=== PATIENT | female | born 1940 | race Caucasian/White ===

== ENCOUNTER 2019-02-07 19:30 | Inpatient (IN) | payer BC ==
[2019-02-07 20:59] VITALS: BMI 25.4
[2019-02-07] MEDS ORDERED: ONDANSETRON 4 MG/2 ML VIAL IV PRN (21:40)
[2019-02-07] MEDS ORDERED: VANCOMYCIN/NS 1 gm 1 GM/250 ML BAG IVPB SCH (22:00)
[2019-02-07] MEDS ORDERED: CEFTRIAXONE 1 GM/NS 50 ML 1 GM/50 ML BAG IV SCH (22:00)
[2019-02-07] MEDS: CEFTRIAXONE/SWI 1gm 1 GM/10 ML SYR IV SCH (22:25)
[2019-02-07] MEDS: NA CHLORIDE 0.9% 1,000 ML IV SCH (22:25)
--- NOTE | 2019-02-07 22:27 | RAD REPORT ---
EXAM DESCRIPTION: RAD - Chest Pa And Lat (2 Views) - 02/07/2019 10:04 pm CLINICAL HISTORY: preop Chest pain. COMPARISON: Chest Pa And Lat (2 Views) dated 03/20/2016; Chest Pa And Lat (2 Views) dated 09/19/2015; EST PA AND LAT 2 VIEW dated 05/08/2015; CHEST SINGLE VIEW dated 12/01/2014 FINDINGS: The lungs are clear. The heart is normal in size. Small chronic left pleural effusion or p leural thickening. No aggressive bone lesion.
[2019-02-07 22:42] LABS: Absolute Lymphocytes (CBC) 1.5 K/uL (0.7-4.9); Basophils % 0.7 % (0-1.3); Hematocrit 34.6 % (36.0-45.0); Lymphocytes % 20.3 % (15.3-44.8); MPV 8.8 fL (7.6-11.3); Protime INR 1.08; RBC Red Blood Cell Count 3.97 M/uL (3.86-4.86)
[2019-02-07] MEDS: VANCOMYCIN 1.25 GM in NA CHLORIDE 0.9% 250 ML IVPB SCH (23:00)
[2019-02-07 23:02] LABS: Albumin 3.7 g/dL (3.4-5.0); Bilirubin Total 0.4 mg/dL (0.2-1.0); Magnesium 2.3 mg/dL (1.8-2.4); Potassium 3.8 mmol/L (3.5-5.1); Protein, Total 7.7 g/dL (6.4-8.2)
[2019-02-08] MEDS ORDERED: VANCOMYCIN 1 GM/VIAL ONE (00:08)
[2019-02-08] MEDS ORDERED: NA CHLORIDE 0.9% 250 ML ONE (00:10)
[2019-02-08 00:26] LABS: Urine Appearance CLEAR; Urine Bilirubin NEGATIVE (NEG); Urine Blood 1+ (NEG); Urine Color YELLOW; Urine Glucose NEGATIVE (NEG); Urine Protein NEGATIVE (NEG); Urine Specific Gravity <=1.005 (1.005-1.030); Urine Urobilinogen 0.2 mg/dL (0.2-1.0)
[2019-02-08 00:34] LABS: Urine Microscopic Reflex ORDER UMIC
[2019-02-08 00:38] LABS: Urine Bacteria <20 /HPF (<20); Urine Culture Reflex Order NOT NEEDED; Urine RBC <5 /HPF (NONE SEEN)
[2019-02-08] MEDS ORDERED: INFLUENZA VACCINE (for 3y+) 0.5 ML DOSE IMVAC ONE (08:00)
[2019-02-08] MEDS: PREGABALIN 100 MG PO SCH ×3 (09:00→23:20)
[2019-02-08] MEDS: GEMFIBROZIL 600 MG PO SCH ×2 (09:00→21:00)
[2019-02-08] MEDS: MORPHINE 2 MG/ML SYR IV PRN ×2 (09:25→13:36)
[2019-02-08] MEDS: CEFTRIAXONE/SWI 1gm 1 GM/10 ML SYR IV SCH ×2 (11:09→22:17)
[2019-02-08] MEDS ORDERED: BUPIVACA 0.5%/EPI 0.0005%/PF 10 ML VIAL ONE (13:53)
[2019-02-08] MEDS ORDERED: Ringers Lactate 1,000 ML IV ONE (13:54)
[2019-02-08] MEDS ORDERED: PROPOFOL 200 MG/20 ML VIAL IV ONE (14:10)
[2019-02-08] MEDS ORDERED: MIDAZOLAM HCL 2 MG/2 ML INJ ONE (14:10)
[2019-02-08] MEDS ORDERED: FENTANYL CITR 100 MCG/2 ML ONE (14:10)
[2019-02-08] MEDS ORDERED: ONDANSETRON 4 MG/2 ML VIAL ONE (14:11)
[2019-02-08] MEDS ORDERED: LIDOCAINE 2% MPF 5 ML VIAL ONE (14:15)
[2019-02-08] MEDS ORDERED: EPHEDRINE SULF 50 MG/ML VIAL ONE (14:37)
--- NOTE | 2019-02-08 14:50 | CON ---
Date of Consultation: 02/08/2019 Brief History Of Present Illness: Patient is a 78-year-old female with history of metastat ic breast cancer who presents with approximately 4 to 5-day history of right posterior thigh pain, te nderness, swelling, and drainage consistent with a possible abscess. She has not had similar episode s in the remote past. No traumatic injury to her knowledge and she has no systemic complaints or con stitutional complaints regarding this issue. Past Medical History: Significant for stage IV breast cancer, hypertension, and neuropathy. Past Surgical History: She has had a mastectomy for breast cancer. Home Medications: Arimidex, gemfibrozil, metoprolol, pregabalin, rosuvastatin, venlafaxine. Allergies: CODEINE. Social History: She denies smoking, alcohol, or recreational drug use. Review of Systems: 10-point review of systems other than HPI, denies. Physical Examination: Vital Signs: At time of my examination, blood pressure 109/60, pulse of 76, respiratory rate 18, tem perature 99.0. General: At the time of my examination, she is awake, alert, oriented. Psychiatric: Appropriate, conversive. HEENT: Normocephalic. Sclerae are icteric. Mucous membranes are moist. Oropharynx is clear. Neck: Supple. No JVD. Chest: Normal expansion and excursion. Mastectomy is evident. Abdomen: Soft, nontender, nondistended. Extremities: Focused examination of the extremities, left posterior thigh abscess is evident with dr puga, redness, cellulitis, and fluctuance in the area. The remainder of examination is essentially normal. Laboratory Data: Reveals a white blood count of 7.5, hemoglobin 11.4, hematocrit of 34.6, platelet c ount is 238. Her PT is 12.7, INR 1.08. Sodium 139, potassium 3.8, chloride 104, carbon dioxide 31, BUN 16, creatinine 0.7, glucose is 88. Magnesium is 2.3. Total bilirubin 0.4, AST 13, ALT 19, alkal ine phosphatase is 54. Her UA is essentially negative. She had a chest x-ray performed, which was o fficially read as lungs are clear. Heart is normal. Small chronic left pleural effusion or pleural thickening. No aggressive bony lesion. Assessment And Plan: This is a 78-year-old female who presents with signs and symptoms of an abscess of the posterior thigh. 1.IV fluid hydration. 2.Antibiotic coverage. 3.Continue medical management. 4.I explained risks, benefits, and alternatives of incision and drainage of the posterior thigh absc ess, including but not limited to bleeding, infection, damage to surrounding tissues, need for furthe r operation and procedures, the patient agrees to proceed as indicated. RANJANA/ARNAUD Voice ID: [id number] Report ID: [id number]
--- NOTE | 2019-02-08 14:57 | P.OP ---
Preoperative diagnosis: LEFT posterior thigh abscess Postoperative diagnosis: LEFT posterior thigh abscess Primary procedure: Incision and Drainage of LEFT posterior thigh abscess Anesthesia: GETA + Local Estimated blood loss: <5cc Specimen: cultures Findings: multiloculated abscess to fat [id number] Complications: None Transferred to: Recovery Room Condition: Good
--- NOTE | 2019-02-08 15:11 | HP ---
Date of Admission: 02/07/2019 Chief Complaint: Abscess, left thigh. History Of Present Illness: Ms. Milner is a very pleasant 78-year-old female patient, who came into my office today with her and reported that for last few months, she noted this small cyst ty pe of area, which slowly grew over period of time. The way she described it was about between 1 to 2 cm in size. Overlying skin was always normal color, normal temperature and was nontender up until l ast week on when she decided to squeeze this area to see if she can get something out of it and within a day after that, she started to have significant amount of redness, pain, and swelling of the soft tissue in the surrounding region and there was no open area, no drainage. The pain is cont inuous, worse with even very gentle touch. She has trouble sitting because of the location of this a roxanne. After she was evaluated at the office, decision was made to admit her to the hospital with absc ess of this left posterior thigh and she will require incision and drainage and IV antibiotics. Allergies: NO KNOWN ALLERGIES. Medications: List reviewed. Review of Systems: Dermatology: As mentioned above. All other systems reviewed and negative. Past Medical History: Neuropathy secondary to chemotherapy, allergic rhinitis, impaired fasting gluc ose, hyperlipidemia, palpitation, diverticulosis, breast cancer, osteoarthritis at multiple sites, os teoporosis, and anemia. Past Surgical History: Cataract surgery, left-sided mastectomy, hysterectomy, breast augmentation. Family History: Father, mother, and brother, they all had [place]. Son with hypertension. Social History: Prior history of smoking, not at present time. Use of alcohol negative. Physical Examination: Vital Signs: When she was admitted, temperature 98.4, pulse 69, respiratory rate 18, blood pressure 156/79, oxygen saturation 100%. Height 5 feet 6 inches, weight 157 pounds. General: Awake, alert, oriented, not in distress. HEENT: Head atraumatic, normocephalic. Conjunctivae nonerythematous. Sclerae white. Mouth, no thr ush or edema noted. Ears/Nose, no mass, lesion, discharge noted. Neck: Supple. No JVD, lymph nodes, bruit, thyromegaly noted. Lungs: Bilateral good equal air entry. Clear to auscultation. No rhonchi. No rales. Heart: Normal heart sounds, no murmur or gallop. Abdomen: Soft, bowel sounds normal. No guarding, rigidity, tenderness, mass, hepatosplenomegaly, dis tention, or bruit noted. Extremities: Left upper posterior thigh has approximately 8 cm x 5 cm large area of induration. Skin: This area is red, extremely tender to touch. In the center, has some fluctuation. No open wo und. Lymphatics: No lymph node enlargement in neck, supraclavicular, infraclavicular region. Neuro: No focal neurological deficit. Chest: Unremarkable. External Genitalia: Deferred. Rectal: Deferred. Laboratory Data: White count 7.5, hemoglobin 11.4, platelets 238. INR 1.08. Sodium 139, potassium 3.8, chloride 104, bicarb 31, BUN 16, creatinine 0.77, glucose 88. Liver function tests unremarkable . Urinalysis negative. Chest x-ray, no acute cardiopulmonary changes noted. Impression: 1.Abscess, left thigh. 2.Hyperlipidemia. 3.Impaired fasting glucose. 4.Left breast cancer. 5.Diverticulosis. 6.Osteoarthritis. 7.Osteoporosis. Plan: Admit patient to hospital for further evaluation and management of this problem. The patient is appropriate for inpatient and is expected to spend 2 midnights in hospital. We will go ahead and continue home medications per order. IV antibiotics will be started per order and the patient will n eed incision and drainage done tomorrow. We will keep her n.p.o. after midnight and we will consult general surgeon and I will discuss details with general surgeon regarding this. Plan of treatment ex plained to patient. I will see her tomorrow for followup. SCD was ordered for DVT prophylaxis. KENISHA/MODL Voice ID: [id number]
[2019-02-08 15:52] VITALS: O2SAT 97
[2019-02-08] MEDS: NA CHLORIDE 0.9% 1,000 ML IV SCH (16:31)
[2019-02-08] MEDS: Rosuvastatin Calcium 10 MG TABLET PO SCH (16:56)
[2019-02-08] MEDS: ACETAMINOPHEN 500 MG TAB PO PRN ×2 (16:56→22:37)
[2019-02-08] MEDS: ANASTROZOLE 1 MG PO SCH (16:57)
[2019-02-08] MEDS: SUCCINATE PO SCH (16:57)
[2019-02-08] MEDS: METOPROLOL PO SCH (16:57)
[2019-02-08] MEDS ORDERED: VENLAFAXINE HCL 75 MG PO SCH (21:00)
[2019-02-08] MEDS: VANCOMYCIN 1.25 GM in NA CHLORIDE 0.9% 250 ML IVPB SCH (22:17)
--- NOTE | 2019-02-09 00:32 | OP ---
Date of Procedure: 02/08/2019 Surgeon: Lakhwinder Pennington MD, Preoperative Diagnosis: Left posterior thigh abscess. Postopoperative Diagnosis: Left posterior thigh abscess. Procedure Performed: Incision and drainage of left posterior thigh abscess. Anesthesia: General endotracheal plus local with 0.5% Marcaine with epinephrine. Estimated Blood Loss: Less than 5 mL. Specimen: Cultures for both aerobic and anaerobic speciation. Findings: Multiloculated abscess extending to the subcu fat 5 cm x 4 cm x 4 cm. Complications: None. Disposition: Transferred to recovery room in good condition. Procedure In Detail: After informed consent was obtained, patient was brought to the operating room, prepped and draped in the usual sterile fashion. After adequate anesthesia was achieved, the area o xiao the left posterior thigh was opened up using a 15-blade down through the subcutaneous tissues. D issection continued down to a subcutaneous fat; however, an abscess was encountered. This was cultur ed at this time. The area was completely finger-fractured until complete evacuation of abscess was p erformed and all loculations were taken down. The area was copiously irrigated multiple times until all loculations were removed. A curette was used then to clean out all necrotic and debridement tiss ue after good bleeding tissue was left behind. Electrocautery used to achieve hemostasis easily. Th e area was irrigated once again and packed with half-inch iodoform packing. A sterile dressing was a pplied at the top. Patient tolerated the procedure well without evidence of complication, transferred to PACU in good condition. All counts w ere correct at the end of the case. RANJANA/ARNAUD Voice ID: [id number] Report ID: [id number]
[2019-02-09] MEDS: ACETAMINOPHEN 500 MG TAB PO PRN ×2 (05:39→12:22)
[2019-02-09] MEDS: NA CHLORIDE 0.9% 1,000 ML IV SCH (05:41)
[2019-02-09 08:57] VITALS: BP 118/70; TEMP 98.3
[2019-02-09] MEDS: SUCCINATE PO SCH (09:46)
[2019-02-09] MEDS: METOPROLOL PO SCH (09:46)
[2019-02-09] MEDS: GEMFIBROZIL 600 MG PO SCH (09:46)
[2019-02-09] MEDS: Rosuvastatin Calcium 10 MG TABLET PO SCH (09:47)
[2019-02-09] MEDS: ANASTROZOLE 1 MG PO SCH (09:47)
[2019-02-09] MEDS: PREGABALIN 100 MG PO SCH ×2 (09:57→13:18)
[2019-02-09] MEDS: CEFTRIAXONE/SWI 1gm 1 GM/10 ML SYR IV SCH (11:10)
--- NOTE | 2019-02-09 12:51 | P.PN ---
Subjective Date of Service: 02/09/19 Subjective: Improving (Patient feels much better) Physical Examination - Vital Signs Temperature: 98.3 F Blood Pressure: 118/70 Pulse: 65 Respirations: 18 Pulse Ox (%): 93 - Physical Exam General: Alert, In no apparent distress, Cooperative Integumentary: Other (wound packed well) Assessment And Plan - Plan S/P incision and drainage of posterior thigh abscess - daily dressing changes wtih packing - follow up in 1-2 weeks - antibiotics and medical management per Dr. Moreno
[2019-02-09] MEDS: MORPHINE 2 MG/ML SYR IV PRN (14:52)
--- NOTE | 2019-02-09 16:46 | PN ---
Date of Progress Note: 02/08/2019 Subjective: Patient was seen for followup in the morning. No new complaints or problems reported. She still has significant amount of pain in her left posterior thigh. Objective: Vital Signs: Reviewed. HEENT: Normal Lung: Clear to auscultation Heart: Sounds normal. Abdomen: Soft. Bowel sounds normal. No guarding, rigidity, tenderness, or distention. Extremities: No leg edema. Left posterior thigh abscess remains unchanged from yesterday. Impression: 1. Abscess, left thigh. 2. Hyperlipidemia. 3. Breast cancer. Plan: We will continue current medication, antibiotic. The patient is n.p.o. for incision and drainage procedure to be done today by Dr. Pennington and I have discussed details with Dr. Pennington. KENISHA/MODJayant Voice ID: [id number] Report ID: [id number] MTDD
--- NOTE | 2019-02-10 00:35 | DS ---
Date of Discharge: 02/09/2019 Disposition: Discharged to go home. Physical Examination: HEENT: Unremarkable. Lungs: Clear to auscultation. Heart: Sounds normal. Abdomen: Soft. Bowel sounds normal. No guarding, rigidity, tenderness, or distention. Extremities: Left posterior thigh has dressing present. Dressing was removed and noted that the patient had small wound approximately 2.5 cm size, it was packed with the wound, surrounding skin has some pink warm skin induration. Overall it is better than what it was before she had surgery yesterday. Hospital Course: Ms. Milner is a pleasant 78-year-old female patient who came into office with left posterior thigh abscess. Please see dictated H and P for more information. After she was evaluated, decision was made to admit her to the hospital. General surgeon, Dr. Pennington was consulted and yesterday the patient had incision and drainage, debridement procedure done for this abscess. Postoperatively, intraoperatively, she remained stable. The patient was started on IV antibiotic when she first came in and wound culture was collected , result is pending. Overall, her condition otherwise has remained stable and today I did talk to Dr. Pennington and from his point of view the patient can go home. Medically, patient is stable for discharge. Social service consult was requested to make arrangements for home health care services for wound care dressing changes. I did talk to patient about necessary precautions to avoid any transmission of infection. I did inform patient that her culture report is pending, it may take another day or 2 days before we get the final report back and on the basis of the final report, we may or may not need to change any antibiotics and in the worst case we may need IV antibiotic and she may have to come back to the hospital. She understands and she would like to go home if possible. Dr. Pennington and I, we both agreed that she is medically stable for discharge, so we will discharge her to go home and I will follow up on culture on an outpatient basis. If we need to change antibiotics, we will consider to do so. Final Diagnoses: 1. Abscess, left thigh. 2. Hyperlipidemia. 3. Impaired fasting glucose. 4. Left breast cancer. 5. Diverticulosis. 6. Osteoarthritis, multiple sites. 7. Osteoporosis. Laboratory Data: Labs done during this hospitalization, sodium 139, potassium 3.8, chloride 104, bicarb 31, BUN 16, creatinine 0.7, glucose 88. LFT is unremarkable. White count 7.5, hemoglobin 11.4, and platelet count of 238. Discharge Medications And Instructions: 1. Continue prior home medications. 2. Take Bactrim DS 1 tablet twice a day for 10 days. 3. Levaquin 500 mg daily for 10 days. 4. Dressing changes to be done by home health care nurses as per instruction from Dr. Pennington. 5. Follow up with Dr. Pennington next week and follow up at my office in 2-3 weeks. 6. The patient was instructed to use Tylenol 500 mg and Motrin 800 mg 3-4 times a day as needed for pain and for more intense pain she may use tramadol 50 mg every 6 hours as needed. Prescription was written for .. KENISHA/SHIRLEYL Voice ID: [id number] Report ID: [id number] MTDD
== END 2019-02-09 15:45 | disposition home health service (06) | DRG 581 ==
LOC: ER 19:30 → ERHOLD 19:34 → 4TH 20:07
PROVIDERS: ADMIT Internal Medicine; ATTEND Internal Medicine
PROC: 0J9P0ZZ Drainage of Left Lower Leg Subcutaneous Tissue and Fascia, Open Approach (ICD-10-PCS; principal; 2019-02-08 13:00)
DX: L02.416 Cutaneous abscess of left lower limb (principal); R73.01 Impaired fasting glucose; C50.919 Malignant neoplasm of unspecified site of unspecified female breast; G62.9 Polyneuropathy, unspecified; E78.5 Hyperlipidemia, unspecified; M81.0 Age-related osteoporosis without current pathological fracture; D64.9 Anemia, unspecified; M19.90 Unspecified osteoarthritis, unspecified site
CPT/HCPCS: 36415; 71046; 80053; 81003; 81015; 83735; 85025; 85610; 87070; 87075; 87205; J0696; J2250; J2270; J2405; J2704; J3010; J7030; J7120

== ENCOUNTER 2020-08-15 17:30 | Emergency (ER) | payer BC ==
--- OUTSIDE RECORDS SUMMARY | 2020-08-15 17:32 | XMS REPORT | Continuity of Care Document ---
:[address] [facility] t Address [address] [place] [address] Care Team Providers Name Role Phone Neli URIARTE Primary Care Physician Unavailable Mazin Bustamante DO Attending Clinician Lab, Fam Pob I Attending Clinician Unavailable Doctor Unassigned, Name Attending Clinician Unavailable Neli URIARTE Attending Clinician Unavailable William LAMBERT Attending Clinician Unavailable SHONDA Attending Clinician Unavailable Tanesha Perez Attending Clinician Payers Payer Name Policy Type Policy Number Effective Date Expiration Date S oursandra [employer] [place] PPO POS [id number] 2015 00:00:00 Problems This patient has no known problems. Allergies, Adverse Reactions, Alerts This patient has no known allergies or adverse reactions. Medications This patient has no known medications. Vital Signs Vital Name Observation Time Observation Value Comments Source WEIGHT 2019-09-19 00:00:00 77.3 kg Procedures This patient has no known procedures. Encounters Start End Encounter Admission Attending Care Care Encounter Source Date/Time Date/Time Type Type Clinicians Facility Department ID 2020-04-08 2020-04-08 Patient PEGGY Bustamante [id number] 00:00:00 00:00:00 Outreach [facility] [id number] Mazin [facility] [id number] BECKY [id number] 2020-02-14 2020-02-14 Laboratory Lab, [facility] [id number] 11:15:12 11:35:12 Only Fam Pob I [place] [id number] [place] [id number] kenji [id number] nal [address] 2020-02-14 2020-02-14 Letter Doctor GREG [id number] 00:00:00 00:00:00 (Out) UnassignedISH [id number] [place] [facility] [id number] 2019-12-12 2019-12-12 Outpatient SHERRY URIARTE, MDA MDA [id number] MD 00:00:00 00:00:00 KYARA singh 2019-12-12 2019-12-12 Outpatient SHERRY URIARTE, MDA MDA [id number] MD 00:00:00 00:00:00 KYARA singh 2019-12-12 2019-12-12 Outpatient SHERRY LAMBERT, MDA MDA [id number] MD 00:00:00 00:00:00 VINCENT singh 2019-11-14 2019-11-14 Outpatient SHERRY URIARTE, MDA MDA [id number] MD 00:00:00 00:00:00 KYARA singh 2019-10-17 2019-10-17 Outpatient SHERRY URIARTE, MDA MDA [id number] MD 00:00:00 00:00:00 KYARA singh 2019-10-17 2019-10-17 Outpatient PRISCA MICHEL MDA MDA [id number] MD 00:00:00 00:00:00 Anjel singh 2019-09-19 2019-09-19 Outpatient SHERRY URIARTE, MDA MDA [id number] 11:34:39 23:59:00 KYARA singh 2019-09-19 2019-09-19 Outpatient SHERRY LAMBERT, MDA MDA [id number] MD 14:32:35 14:32:35 VINCENT singh 2019-09-19 2019-09-19 Outpatient SHERRY LAMBERT, MDA MDA [id number] MD 14:32:12 14:32:12 VINCENT singh 2019-09-19 2019-09-19 Outpatient SHERRY URIARTE, MDA MDA [id number] MD 13:02:38 13:58:41 KYARA singh 2019-08-17 2019-08-17 [facility] [id number] 14:24:00 23:59:00 Encounter [facility] [id number] Surgical [id number] Specialti [id number] es 809 Linda 2019-08-17 2019-08-17 Office Michael ARSOY [id number] 14:08:45 14:23:45 Visit [facility] [id number] Surgical [id number] Specialti [phone] es 198 Linda Results This patient has no known results.
--- NOTE | 2020-08-15 19:15 | RAD REPORT ---
EXAM DESCRIPTION: Shoulder Right 2 View - 08/15/2020 6:35 pm CLINICAL HISTORY: PAIN, fall, shoulder pain COMPARISON: <Comparisons>none TECHNIQUE: Internal and external rotation views of the right shoulder were obtained. FINDINGS: There is no fracture or dislocation. AC joint is normal in appearance. No acute or suspic ious findings. IMPRESSION: Negative two-view right shoulder examination.
--- NOTE | 2020-08-15 19:16 | RAD REPORT ---
EXAM DESCRIPTION: Ribs Right - 08/15/2020 6:36 pm CLINICAL HISTORY: PAIN, fall, right-sided rib pain COMPARISON: Chest exam January 2019 FINDINGS: No displaced rib fracture is evident. No non-displaced rib fracture suspected. No aggressive rib lesion. No underlying pneumothorax, effusion, infiltrate or pulmonary contusion. IMPRESSION: Negative right rib series.
--- NOTE | 2020-08-15 19:17 | RAD REPORT ---
EXAM DESCRIPTION: RAD - Hip Right 2 View - 08/15/2020 6:36 pm CLINICAL HISTORY: PAIN COMPARISON: No comparisons FINDINGS: AP and frog-leg views of the right hip were obtained. There is no fracture or dislocation. No AVN or focal head abnormality. No significant degenerative ch conrad identified. Small crescent shaped bone density adjacent to the greater tuberosity is not an acut e traumatic injury. No acute or destructive bony process seen. IMPRESSION: Negative right hip examination for acute or significant findings.
--- NOTE | 2020-08-15 20:06 | EDPHYS ---
Physician Documentation [facility] Name: Aida Milner Age: 80 yrs Sex: Female : 1940 Arrival Date: 08/15/2020 Time: 17:33 Bed 13 Private MD: ED Physician Ray Garcia HPI: 08/15 20:02 This 80 yrs old Female presents to ER via Ambulatory with complaints of Fall rn Injury, Shoulder Pain. 20:02 Details of fall: The patient fell from an upright position, while standing. Onset: The rn symptoms/episode began/occurred 1 week(s) ago. Associated injuries: The patient sustained right shoulder, right ribs, right hip. Severity of symptoms: At their worst the symptoms were moderate, in the emergency department the symptoms have improved. The patient has not experienced similar symptoms in the past. The patient has not recently seen a physician. Fall from standing, still hurting, slightly better. No head or neck injury.. Historical: - Allergies: 18:08 Codeine; ph - Immunization history:: Adult Immunizations up to date. - Family history:: not pertinent. - Social history:: Smoking status: Patient denies any tobacco usage or history of. - Hospitalizations: : No recent hospitalization is reported. ROS: 20:02 Constitutional: Negative for fever, chills, and weight loss, Eyes: Negative for injury, rn pain, redness, and discharge, Neck: Negative for injury, pain, and swelling, Cardiovascular: + right rib pain Respiratory: Negative for shortness of breath, cough, wheezing, and pleuritic chest pain, Abdomen/GI: Negative for abdominal pain, nausea, vomiting, diarrhea, and constipation, Back: Negative for injury and pain, MS/Extremity: + right shoulder pain and right hip pain Skin: Negative for injury, rash, and discoloration, Neuro: Negative for headache, weakness, numbness, tingling, and seizure. Exam: 20:02 Constitutional: This is a well developed, well nourished patient who is awake, alert, rn and in no acute distress. Head/Face: Normocephalic, atraumatic. Neck: No vertebral point tenderness Chest/axilla: + mild tenderness right posteriolateral ribs, no crepitus Cardiovascular: Regular rate and rhythm. No pulse deficits. Respiratory: No increased work of breathing, no retractions or nasal flaring. Abdomen/GI: Soft, non-tender, with normal bowel sounds. No distension or tympany. No guarding or rebound. No evidence of tenderness throughout. Back: No spinal tenderness. No costovertebral tenderness. Full range of motion. Skin: Warm, dry MS/ Extremity: Pulses equal, no cyanosis. Neurovascular intact. Full, normal range of motion. Mild tenderness right lateral hip. Neuro: Awake and alert, GCS 15, oriented to person, place, time, and situation. Cranial nerves II-XII grossly intact. Motor strength 5/5 in all extremities. Sensory grossly intact. Cerebellar exam normal. Normal gait. Vital Signs: 18:06 BP 140 / 79; Pulse 68; Resp 18; Temp 97.1; Pulse Ox 98% on R/A; Weight 82.55 kg; Height ph 5 ft. 6 in. (167.64 cm); 18:06 Body Mass Index 29.38 (82.55 kg, 167.64 cm) ph MDM: 19:53 Patient medically screened. rn 20:02 Differential diagnosis: contusion, fracture, sprain, strain. Data reviewed: vital rn signs, nurses notes, radiologic studies, plain films, and as a result, I will discharge patient. Counseling: I had a detailed discussion with the patient and/or guardian regarding: the historical points, exam findings, and any diagnostic results supporting the discharge/admit diagnosis, radiology results, the need for outpatient follow up, to return to the emergency department if symptoms worsen or persist or if there are any questions or concerns that arise at home. Special discussion: I discussed with the patient/guardian in detail that at this point there is no indication for admission to the hospital. It is understood, however, that if the symptoms persist or worsen the patient needs to return immediately for re-evaluation. 08/15 18:10 Order name: XRAY Shoulder RIGHT 2 view; Complete Time: 19:53 ph 08/15 18:10 Order name: XRAY Ribs RIGHT; Complete Time: 19:53 ph 08/15 18:10 Order name: XRAY Hip RIGHT 2 view; Complete Time: 19:53 ph Administered Medications: No medications were administered Disposition: 08/15/20 20:05 Discharged to Home. Impression: Contusion of right shoulder, Rib contusion, Contusion of right hip. - Condition is Stable. - Discharge Instructions: Rib Contusion, Shoulder Pain, Hip Pain, Shoulder Sprain. - Medication Reconciliation Form, Thank You Letter, Antibiotic Education, Prescription Opioid Use form. - Follow up: Private Physician; When: As needed; Reason: Recheck today's complaints, Re-evaluation by your physician. - Problem is new. - Symptoms have improved. Signatures: Dispatcher [employer] EDMS Ray Garcia MD MD rn Hall, Patricia RN RN Po Leone RN RN [id number] Gilberto Johnson RN RN [id number] Corrections: (The following items were deleted from the chart) 20:48 20:05 08/15/2020 20:05 Discharged to Home. Impression: Contusion of right shoulder; Rib rr5 contusion; Contusion of right hip. Condition is Stable. Forms are Medication Reconciliation Form, Thank You Letter, Antibiotic Education, Prescription Opioid Use. Follow up: Private Physician; When: As needed; Reason: Recheck today's complaints, Re-evaluation by your physician. Problem is new. Symptoms have improved. rn
--- NOTE | 2020-08-15 20:06 | ER ---
Nurse's Notes [facility] Name: Aida Milner Age: 80 yrs Sex: Female : 1940 Arrival Date: 08/15/2020 Time: 17:33 Bed 13 Private MD: Diagnosis: Contusion of right shoulder;Rib contusion;Contusion of right hip Presentation: 08/15 18:06 Chief complaint: Patient states: Fell last Thursday, reports pain to L shoulder, L ribs, ph and L hip, denies head injury or LOC, ambulatory into triage. Coronavirus screen: Client denies travel out of the [place] in the last 14 days. At this time, the client does not indicate any symptoms associated with coronavirus-19. Ebola Screen: No symptoms or risks identified at this time. Initial Sepsis Screen: Does the patient meet any 2 criteria? No. Patient's initial sepsis screen is negative. Does the patient have a suspected source of infection? No. Patient's initial sepsis screen is negative. Risk Assessment: Do you want to hurt yourself or someone else? Patient reports no desire to harm self or others. Onset of symptoms was August 15, 2020. 18:06 Method Of Arrival: Ambulatory ph 18:06 Acuity: MELVIN 4 ph Triage Assessment: 20:56 General: Appears in no apparent distress. comfortable, Behavior is calm, cooperative, jm8 appropriate for age. Historical: - Allergies: 18:08 Codeine; ph - Immunization history:: Adult Immunizations up to date. - Family history:: not pertinent. - Social history:: Smoking status: Patient denies any tobacco usage or history of. - Hospitalizations: : No recent hospitalization is reported. Screenin:55 Abuse screen: Denies threats or abuse. Denies injuries from another. Nutritional jm8 screening: No deficits noted. Tuberculosis screening: No symptoms or risk factors identified. Fall Risk None identified. Assessment: 20:54 General: Appears in no apparent distress. comfortable, Behavior is calm, cooperative, jm8 appropriate for age. Pain: Complains of pain in right arm, right hip, right shoulder Pain currently is 4 out of 10 on a pain scale. Quality of pain is described as aching. Neuro: No deficits noted. Level of Consciousness is awake, alert, obeys commands, Oriented to person, place, time. Cardiovascular: No deficits noted. Respiratory: No deficits noted. Airway is patent Trachea midline Respiratory effort is even, unlabored, Respiratory pattern is regular, symmetrical. GI: No deficits noted. No signs and/or symptoms were reported involving the gastrointestinal system. : No deficits noted. No signs and/or symptoms were reported regarding the genitourinary system. EENT: No deficits noted. No signs and/or symptoms were reported regarding the EENT system. Derm: No deficits noted. No signs and/or symptoms reported regarding the dermatologic system. Musculoskeletal: Reports pain in right arm, right shoulder, right hip. Vital Signs: 18:06 BP 140 / 79; Pulse 68; Resp 18; Temp 97.1; Pulse Ox 98% on R/A; Weight 82.55 kg; Height ph 5 ft. 6 in. (167.64 cm); 18:06 Body Mass Index 29.38 (82.55 kg, 167.64 cm) ph ED Course: 17:33 Patient arrived in ED. as 18:08 Triage completed. ph 18:08 Arm band placed on Patient placed in waiting room, Patient notified of wait time. ph Antipyretics given from triage as ordered by an ER provider. Antipyretics given from triage as ordered by an ER provider. X-ray ordered. 18:35 XRAY Shoulder RIGHT 2 view In Process Unspecified. EDMS 18:35 XRAY Ribs RIGHT In Process Unspecified. EDMS 18:35 XRAY Hip RIGHT 2 view In Process Unspecified. EDMS 19:53 Ray Garcia MD is Attending Physician. rn 20:56 Patient has correct armband on for positive identification. Bed in low position. Call jm8 light in reach. Side rails up X2. Adult w/ patient. 20:56 No provider procedures requiring assistance completed. Patient did not have IV access jm8 during this emergency room visit. Administered Medications: No medications were administered Outcome: 20:05 Discharge ordered by . rn 20:48 Patient left the ED. rr5 20:56 Discharged to home ambulatory, with family. jm8 20:56 Condition: good 20:56 Discharge instructions given to patient, family, Instructed on discharge instructions, follow up and referral plans. medication usage, Demonstrated understanding of instructions, follow-up care, medications. Signatures: Dispatcher [employer] Danna Rinaldi as Ray Garcia MD MD rn Hall, Patricia, RN RN ph Po Leone, RN RN rr5 Gilberto Johnson RN RN jm8
[2020-08-15 20:56] VITALS: BP 140/79; TEMP 97.1; O2SAT 98
== END 2020-08-15 20:48 | disposition home or self-care (01) ==
LOC: ER 17:30
DX: S40.011A Contusion of right shoulder, initial encounter (principal); S70.01XA Contusion of right hip, initial encounter; S20.211A Contusion of right front wall of thorax, initial encounter; W18.30XA Fall on same level, unspecified, initial encounter; Z88.5 Allergy status to narcotic agent
CPT/HCPCS: 99283

== ENCOUNTER 2021-03-18 09:50 | Emergency (ER) | payer BC ==
--- OUTSIDE RECORDS SUMMARY | 2021-03-18 09:52 | XMS REPORT | Continuity of Care Document ---
:1940 Author Organization [facility] t Address [address] [place] [address] Care Team Providers Name Role Phone Lito RIZVI Primary Care Physician Unavailable FARHAT Attending Clinician Unavailable CLARK Attending Clinician Unavailable Neli URIARTE Attending Clinician Unavailable RAFI Attending Clinician Unavailable LAWANDA Attending Clinician Unavailable SHONDA Attending Clinician Unavailable RAFI Attending Clinician Unavailable BRADLEY Attending Clinician Unavailable SHAKIR Attending Clinician Unavailable FACUNDO Attending Clinician Unavailable Mazin Bustamante DO Attending Clinician Lab, Fam Pob I Attending Clinician Unavailable Doctor Unassigned, Name Attending Clinician Unavailable William LAMBERT Attending Clinician Unavailable Tanesha RAJAN Attending Clinician Unavailable Tanesha Perez Attending Clinician SHAKIR Admitting Clinician Unavailable Payers Payer Name Policy Type Policy Number Effective Date Expiration Date S oursandra [place]PO POS [id number] 2015 00:00:00 PPO/EPO - BCBS [id number] BCBS PPO POS EPO [id number] 2011 00:00:00 CHOICE BCBS [facility] [id number] 2016 00:00:00 Problems This patient has no known problems. Allergies, Adverse Reactions, Alerts Allergy Allergy Status Severity Reaction(s) Onset Inactive Treating Comm ents Source Name Type Date Date Clinician CODEINE DRUG Active N/V [facility] SULFATE INGREDI 09-15 ity of 00:00: [address] NO KNOWN Allergy Active [facility] Medications This patient has no known medications. Vital Signs Vital Name Observation Time Observation Value Comments Source WEIGHT 2019-09-19 00:00:00 77.3 kg Procedures This patient has no known procedures. Encounters Start End Encounter Admission Attending Care Care Encounter Source Date/Time Date/Time Type Type Clinicians Facility Department ID 2021-03-04 2021-03-04 Outpatient EL ANASTASIIA MDA [id number] 10:23:49 10:23:49 Anjel singh 2021-02-20 2021-02-20 Outpatient SHERRY DOUGHERTY MDA MDA [id number] 11:30:00 23:59:00 ALFREDO singh 2021-02-20 2021-02-20 Outpatient SHERRY RODAS MDA MDA [id number] 13:16:26 13:16:26 ALLYSON singh 2021-02-11 2021-02-11 Outpatient SHERRY URIARTE MDA MDA [id number] 18:04:40 23:59:00 KYARA singh 2021-02-11 2021-02-11 Outpatient SHERRY URIARTE MDA MDA [id number] 11:56:58 18:03:00 KYARA singh 2021-02-11 2021-02-11 Outpatient SHERRY URIARTE MDA MDA [id number] MD 15:37:53 15:37:53 KYARA singh 2021-02-11 2021-02-11 Outpatient SHERRY URIARTE MDA MDA [id number] 13:54:52 15:33:40 KYARA singh 2021-02-11 2021-02-11 Outpatient SHERRY URIARTE MDA MDA [id number] 13:25:27 13:25:27 KYARA singh 2021-02-08 2021-02-[address] [facility] [id number] [facility] 13:38:01 15:43:37 Clara 2021-02-05 2021-02-05 Outpatient SHERRY WEBBERANASTASIIA PECK MDA [id number] 14:25:50 15:47:57 LOLITA singh 2021-02-05 2021-02-05 Outpatient EL MDA MDA [id number] 12:51:27 12:51:27 Anjel singh 2021-02-01 2021-02-[address] [facility] [id number] [facility] 11:15:05 15:43:06 Clara 2021-01-23 2021-01-23 Outpatient PRISCA MICHEL MDA MDA [id number] 08:55:17 09:42:42 Anjel singh 2021-01-22 2021-01-22 Outpatient ELIS MALAVE [facility] [id number] 17:48:31 23:59:00 2021-01-22 2021-01-22 Outpatient ELIS MALAVE [facility] SLE [id number] [facility] 17:48:24 23:59:00 2021-01-22 2021-01-22 Outpatient ELIS MALAVE [facility] SLE [id number] SLE[facility] 17:48:18 17:47:00 2021-01-10 2021-01-10 Outpatient EL MDA MDA [id number] 12:30:00 23:59:00 Anjel singh 2021-01-10 2021-01-10 Outpatient EL JESSEER, MDA MDA [id number] MD 13:15:06 15:00:23 KYARA singh 2020-12-17 2020-12-17 Outpatient EL MDA MDA [id number] 14:07:40 14:07:40 Anjel singh 2020-12-17 2020-12-17 Outpatient EL WEBBER, MDA MDA [id number] MD 13:05:15 13:58:12 LOLITA singh 2020-12-13 2020-12-13 Outpatient EL BOOSER, MDA MDA [id number] 12:29:13 23:59:00 KYARA singh 2020-12-13 2020-12-13 Outpatient EL BOOSER, MDA MDA [id number] MD 13:43:43 14:56:39 KYARA singh 2020-12-13 2020-12-13 Outpatient EL BOOSER, MDA MDA [id number] 12:08:00 12:08:00 KYARA singh 2020-12-13 2020-12-13 Outpatient EL JESSEER, MDA MDA [id number] 10:59:01 12:00:28 KYARA singh 2020-12-03 2020-12-03 Outpatient EL WEBBER, MDA MDA [id number] MD 11:58:42 11:58:42 LOLITA singh 2020-11-15 2020-11-15 Outpatient EL BOOSER, MDA MDA [id number] 07:00:00 23:59:00 KYARA singh 2020-11-15 2020-11-15 Outpatient EL BOOSER, MDA MDA [id number] 08:00:28 09:47:59 KYARA singh 2020-11-01 2020-11-01 Outpatient EL WEBBER, MDA MDA [id number] 07:05:33 23:59:00 LOLITA singh 2020-11-01 2020-11-01 Outpatient EL WEBBER, MDA MDA [id number] 08:38:31 10:10:01 LOLITA singh 2020-11-01 2020-11-01 Outpatient EL WEBBER, MDA MDA [id number] MD 07:00:00 07:04:00 LOLITA singh 2020-10-31 2020-10-31 Outpatient EL BRADLEY, MDA MDA [id number] 12:51:48 12:51:48 OMERO singh 2020-10-26 2020-10-27 Outpatient ER KIKE SCHILLING MDA Emergency 1 [id number] 14:01:00 20:13:00 Anjel singh 2020-10-18 2020-10-18 Emergency UR FACUNDO, MDA Emergency [id number] 13:02:00 18:56:00 YOLIE singh 2020-10-18 2020-10-18 Outpatient EL BOOSER, MDA MDA [id number] 10:58:40 12:27:51 KYARA singh 2020-10-05 2020-10-05 Outpatient EL BOOSER, MDA MDA [id number] 11:53:25 11:58:01 KYARA singh 2020-09-20 2020-09-20 Outpatient EL BOOSER, MDA MDA [id number] 13:37:56 14:08:00 KYARA singh 2020-09-20 2020-09-20 Outpatient EL BOOSER, MDA MDA [id number] 13:17:55 13:33:55 KYARA singh 2020-04-08 2020-04-08 Patient Robby, [facility] [id number] 00:00:00 00:00:00 Outreach Jeremias PRIMARY [id number] [place] C[facility] [id number] PAVILLION [id number] 2020-02-14 2020-02-14 Laboratory Lab, [facility] [id number] 11:15:12 11:35:12 Only Fam Pob I Health [id number] [place] [id number] Professio [id number] nal 0[address] 2020-02-14 2020-02-14 Outpatient [facility] [id number] Univers 11:20:00 11:20:00 y [facility] 2020-02-14 2020-02-14 Outpatient R [facility] [id number] Univers 11:20:00 11:20:00 [facility] 2020-02-14 2020-02-14 Letter Doctor GREG [id number] 00:00:00 00:00:00 (Out) Unassigned, [facility] [id number] [place] [facility] [id number] 2019-12-12 2019-12-12 Outpatient SHERRY URIARTE MDA MDA [id number] 00:00:00 00:00:00 KYARA singh 2019-12-12 2019-12-12 Outpatient SHERRY URIARTE MDA MDA [id number] 00:00:00 00:00:00 KYARA singh 2019-12-12 2019-12-12 Outpatient SHERRY LAMBERT MDA MDA [id number] MD 00:00:00 00:00:00 VINCENT singh 2019-11-14 2019-11-14 Outpatient SHERRY URIARTE MDA MDA [id number] 00:00:00 00:00:00 KYARA singh 2019-10-17 2019-10-17 Outpatient SHERRY URIARTE MDA MDA [id number] MD 12:05:19 12:05:19 KYARA singh 2019-10-17 2019-10-17 Outpatient PRISCA MICHEL MDA MDA [id number] 00:00:00 00:00:00 Anjel singh 2019-09-19 2019-09-19 Outpatient SHERRY URIARTE MDA MDA [id number] 11:34:39 23:59:00 KYARA singh 2019-09-19 2019-09-19 Outpatient SHERRY LAMBERT MDA MDA [id number] 14:32:35 14:32:35 VINCENT singh 2019-09-19 2019-09-19 Outpatient SHERRY LAMBERT MDA MDA [id number] 14:32:12 14:32:12 VINCENT singh 2019-09-19 2019-09-19 Outpatient SHERRY URIARTE MDA MDA [id number] 13:02:38 13:58:41 KYARA singh 2019-08-17 2019-08-17 [facility] [id number] Univers 14:24:11 23:59:00 NATHALIE [facility] 2019-08-17 2019-08-17 [facility] [id number] 14:24:00 23:59:00 Encounter [facility] [id number] Surgical [id number] Specialti [id number] es 809 [place] 2019-08-17 2019-08-17 [facility] [id number] Univers 15:00:00 15:00:[id number] [place] [address] 2019-08-17 2019-08-[address]840.114 [id number] 14:08:45 14:23:45 Visit [facility] [id number] Surgical [id number] Specialti [id number] es 198 [place] Results Test Description Test Time Test Comments Results Result [facility] e Comments RAD, KNEE, 3 2021-01-14 Is this procedure VIEWS, LEFT 0 to be performed 01:32:[address] [facility]?->[facility] CENTERName: LISA BearingReason for JANNETTE POLLOCK Exam:->Bilateral : 1940 chronic knee pain Sex: F FINAL REPORT EXAM/TECHNIQUE: Left knee radiography three views. INDICATION: Chronic knee pain. COMPARISON: None. FINDINGS: Moderate to severe medial compartment joint space narrowing. Minimal patellofemoral osteoarthritis. No joint effusion. Mild genu valgum. 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 Minimal patellofemoral osteoarthritis. Signed: Joe Jang [facility] Verified Date/Time: 01/23/2021 01:32:34 , KNEE, 3 2021-01-14 Is this procedure VIEWS, RIGHT 0 to be performed 00:42:[address] [facility] [facility]?->[facility]ENTERName: LISA BearingReason for JANNETTE POLLOCK Exam:->Bilateral : 1940 chronic knee pain Sex: F FINAL REPORT EXAM/TECHNIQUE: Right knee radiography three views. INDICATION: Chronic knee pain. COMPARISON: None. FINDINGS: Minimal patellofemoral osteophytosis. Moderate to severe medial compartment joint space narrowing with genu valgum deformity. No knee joint effusion. Impression: 1. Moderate to severe medial compartment osteoarthritis.2. Minimal patellofemoral osteoarthritis. Signed: Joe Jang [facility] Verified Date/Time: 01/23/2021 00:42:09 , SHOULDER, 2021-01-14 Reason for COMPLETE (MIN 2 0 Exam:->chronic VIEWS), RIGHT 00:27:[address] [facility] CENTERName: JANNETTE GONZALEZ : 1940 Sex: F FINAL REPORT EXAM/TECHNIQUE: Right shoulder radiography two views. INDICATION: Chronic right shoulder pain. COMPARISON: None. FINDINGS: No acute fracture demonstrated. Mild chronic clavicular osteoarthritis. Glenohumeral osteoarthritis is limited in evaluation without Grashey view. Visualized right hemithorax is unremarkable. Impression: Mild acromioclavicular osteoarthritis. Signed: Joe Jang [facility] Verified Date/Time: 01/23/2021 00:27:54
[2021-03-18] MEDS ORDERED: ONDANSETRON 4 MG/2 ML VIAL ONE (10:20)
[2021-03-18] MEDS ORDERED: HYDROMORPHONE HCL 1 MG/ML INJ ONE ×2 (10:20→11:12)
[2021-03-18 10:53] LABS: Absolute Lymphocytes (CBC) 1.3 K/uL (0.7-4.9); Hematocrit 39.9 % (36.0-45.0); Lymphocytes % 18.9 % (15.3-44.8); MPV 8.4 fL (7.6-11.3); RBC Red Blood Cell Count 4.61 M/uL (3.86-4.86)
[2021-03-18] MEDS ORDERED: NA CHLORIDE 0.9% 500 ML ONE (11:06)
[2021-03-18] MEDS ORDERED: NA CHLORIDE 0.9% 1,000 ML ONE (11:06)
--- NOTE | 2021-03-18 11:08 | RAD REPORT ---
EXAM DESCRIPTION: CT - Pelvis Wo Cont - 03/18/2021 10:50 am CLINICAL HISTORY: PAIN COMPARISON: Spine Lumbar Wo Con dated 03/18/2021 FINDINGS: No acute fractures identified. Irregular sclerotic appearance of the ischium on the left a nd left iliac wing. At the ischium, this measures approximately 4.8 cm. No soft tissue component is i dentified. At the iliac wing, it measures roughly 3.6 cm. The hips are located. Diverticulosis is pre sent. Atherosclerosis is present with ectasia. Hysterectomy. IMPRESSION: Left ischium and left iliac bone lesions could represent metastatic disease. The lesion in the ischium would be amenable to biopsy. Consider bone scan for further evaluation. If there are o ther lesions identified, this would make metastatic disease the most likely etiology.
--- NOTE | 2021-03-18 11:11 | RAD REPORT ---
EXAM DESCRIPTION: CT - Spine Lumbar Wo Con - 03/18/2021 10:49 am CLINICAL HISTORY: Radiculopathy. LOWER BACK PAIN COMPARISON: <Comparisons> TECHNIQUE: Axial noncontrast CT imaging of the lumbar spine was performed with coronal and sagittal re-formatted images. All CT scans are performed using dose optimization technique as appropriate and may include automated exposure control or mA/KV adjustment according to patient size. FINDINGS: No acute lumbar spine fracture seen. Degenerate disc disease with moderate disc height los s on the left at L3-4 and on the right at L5-S1. Partially imaged scoliosis is noted. There is left n eural foraminal narrowing at L3-4. Moderate to severe central spinal stenosis is present at this leve l as well. Paraspinal tissues are normal in thickness. No paraspinal abscess or hematoma seen. Intervertebral disc disease assessment is inherently limited by CT. Within these limitations, no high -grade canal stenosis suspected. IMPRESSION: No acute fracture of the lumbar spine. Degenerative disc disease including both neural f oraminal narrowing and moderate to severe central spinal stenosis. MRI could better assess.
[2021-03-18 11:15] LABS: ALT/SGPT 23 U/L (12-78); AST/SGOT 18 U/L (15-37); Albumin 4.1 g/dL (3.4-5.0); Alkaline Phosphatase 64 U/L (45-117); BUN Blood Urea Nitrogen 16 mg/dL (7-18); Bicarbonate 21 mmol/L (21-32); Bilirubin Direct 0.1 mg/dL (0-0.2); Bilirubin Total 0.5 mg/dL (0.2-1.0); Glucose Level 130 mg/dL (74-106); Magnesium 2.4 mg/dL (1.8-2.4); NT PRO-BNP 139 pg/mL (<450); Protein, Total 8.3 g/dL (6.4-8.2); Sodium Level 139 mmol/L (136-145); Troponin (Emerg Dept Use Only) < 0.02 ng/mL (0.0-0.045)
[2021-03-18 11:18] LABS: Protime INR 1.07
--- NOTE | 2021-03-18 11:35 | RAD REPORT ---
EXAM DESCRIPTION: RAD - Hip Left 2 View - 03/18/2021 10:57 am CLINICAL HISTORY: PAIN COMPARISON: Hip Left 2 View dated 05/18/2017; Hip Left 2 View dated 11/13/2009 FINDINGS: No acute fracture. No malalignment. Sclerotic process in the ischium. IMPRESSION: No acute osseous abnormality involving the left hip. Sclerotic process in the ischium. R eference CT of the pelvis for additional findings.
--- NOTE | 2021-03-18 12:26 | RAD REPORT ---
EXAM DESCRIPTION: RAD - Pelvis - 03/18/2021 12:05 pm CLINICAL HISTORY: PAIN COMPARISON: No comparisonsPelvis dated 05/18/2017 FINDINGS: No acute fracture. No malalignment. Sclerotic focus in the left iliac spine and ischium is again identified. IMPRESSION: No acute osseous abnormality involving the bony pelvis. Sclerotic lesion in the left isc hium and iliac spine. Reference pelvic CT.
--- NOTE | 2021-03-18 12:33 | RAD REPORT ---
EXAM DESCRIPTION: RAD - Chest Single View - 03/18/2021 12:05 pm CLINICAL HISTORY: COUGH COMPARISON: Chest Pa And Lat (2 Views) dated 02/07/2019; Chest Pa And Lat (2 Views) dated 03/20/2016; Chest Pa And Lat (2 Views) dated 09/19/2015; CHEST PA AND LAT 2 VIEW dated 05/08/2015 FINDINGS: Lines: None. Lungs: No evidence of edema or pneumonia. Pleural: No significant pleural effusions or pneumothorax. Cardiac: The heart size is within normal limits. Bones: No acute fractures. Other: IMPRESSION: No acute cardiopulmonary disease.
--- NOTE | 2021-03-18 13:50 | ER ---
Nurse's Notes [facility] Name: Aida Milner Age: 80 yrs Sex: Female : 1940 Arrival Date: 03/18/2021 Time: 09:51 Bed 20 Private MD: Trey Moreno C Diagnosis: Pelvic and perineal pain-metastatic pelic desease, breast cancer Presentation: 03/18 09:53 Chief complaint: Patient states: has been hurting all night in her back, thinks it's iw her kidneys, denies urinary symptoms, denies injury , pain moves into left leg. Coronavirus screen: At this time, the client does not indicate any symptoms associated with coronavirus-19. Ebola Screen: Patient negative for fever greater than or equal to 101.5 degrees Fahrenheit, and additional compatible Ebola Virus Disease symptoms Patient denies exposure to infectious person. Patient denies travel to an Ebola-affected area in the 21 days before illness onset. No symptoms or risks identified at this time. Initial Sepsis Screen: Does the patient meet any 2 criteria? No. Patient's initial sepsis screen is negative. Does the patient have a suspected source of infection? No. Patient's initial sepsis screen is negative. Risk Assessment: Do you want to hurt yourself or someone else? Patient reports no desire to harm self or others. Onset of symptoms was March 17, 2020. 09:53 Method Of Arrival: Wheelchair iw 09:53 Acuity: MELVIN 3 iw Triage Assessment: 10:14 General: Appears distressed, uncomfortable, Behavior is cooperative, appropriate for bp age, agitated, anxious. Pain: Complains of pain in low back area. EENT: No deficits noted. Neuro: No deficits noted. Cardiovascular: No deficits noted. Respiratory: No deficits noted. GI: No signs and/or symptoms were reported involving the gastrointestinal system. : Reports pain in lower back. Derm: No deficits noted. Musculoskeletal: No deficits noted. 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 - Social history:: Smoking status: Patient denies any tobacco usage or history of. Screenin:16 Abuse screen: Denies threats or abuse. Denies injuries from another. Nutritional bp screening: No deficits noted. Tuberculosis screening: No symptoms or risk factors identified. Fall Risk None identified. Assessment: 10:15 General: SEE TRIAGE NOTE. bp 12:00 Reassessment: No changes from previously documented assessment. Patient and/or family bp updated on plan of care and expected duration. Pain level reassessed. 14:21 Reassessment: PT D/C HOME VIA W/C WITH FAMILY, DX WITH METASTATIC LESIONS. bp Vital Signs: 09:30 BP 130 / 90; Pulse 87; Resp 18; Pulse Ox 98% on R/A; ww 09:53 BP 149 / 93; Pulse 112; Resp 20; Temp 98.0; Pulse Ox 95% ; Weight 81.65 kg; Height 5 bp ft. 7 in. (170.18 cm); 10:01 BP 145 / 80; Pulse 66; Resp 18; Pulse Ox 99% on R/A; ww 11:43 BP 147 / 71; Pulse 63; Resp 16; Pulse Ox 98% on NC; ww 12:26 BP 159 / 71; Pulse 68; Resp 18; Pulse Ox 97% on R/A; ww 14:22 BP 145 / 72; Pulse 74; Resp 16; Pulse Ox 100% ; bp 09:53 Body Mass Index 28.19 (81.65 kg, 170.18 cm) bp ED Course: 09:51 Patient arrived in ED. am2 09:51 Trey Moreno MD is Private Physician. am2 09:55 Triage completed. iw 09:56 Forrest Serna, RN is Primary Nurse. bp 09:59 Irwin Starks MD is Attending Physician. thanh 10:15 Arm band placed on. bp 10:16 Patient has correct armband on for positive identification. Bed in low position. Call bp light in reach. Side rails up X2. Adult w/ patient. 10:21 Initial lab(s) drawn, by me, sent to lab. Inserted saline lock: 20 gauge in right ww antecubital area, using aseptic technique. Blood collected. 10:49 CT Lumbar Spine Wo Con In Process Unspecified. EDMS 10:49 CT Pelvis wo Cont: through hips In Process Unspecified. EDMS 10:56 XRAY Chest (1 view) In Process Unspecified. EDMS 10:56 Pelvis XRAY In Process Unspecified. EDMS 10:56 Hip Left 2 View XRAY In Process Unspecified. EDIL 12:01 Urine collected: straight cath specimen, clear. ww 13:48 Trey Moreno MD is Referral Physician. thanh 14:22 No provider procedures requiring assistance completed. IV discontinued, intact, bp bleeding controlled, No redness/swelling at site. Pressure dressing applied. Administered Medications: 10:15 Drug: Dilaudid (HYDROmorphone) 1 mg Route: IVP; Site: right antecubital; bp 14:00 Follow up: Response: Pain is decreased bp 10:15 Drug: Zofran (Ondansetron) 4 mg Route: IVP; Site: right antecubital; bp 14:00 Follow up: Response: No adverse reaction bp 11:10 Drug: NS 0.9% 1000 ml Route: IV; Rate: 125 ml/hr; Site: right antecubital; bp 14:23 Follow up: IV Status: Completed infusion; IV Intake: 375ml bp 11:10 Drug: NS 0.9% 500 ml Route: IV; Rate: bolus; Site: right antecubital; bp 14:23 Follow up: IV Status: Completed infusion; IV Intake: 500ml bp 13:50 Drug: Ketorolac 30 mg Route: IVP; Site: right antecubital; bp 14:24 Follow up: Response: Pain is decreased bp 13:50 Drug: Decadron - Dexamethasone 10 mg Route: IVP; Site: right antecubital; bp 14:24 Follow up: Response: No adverse reaction bp 13:50 Drug: fentaNYL Patch (50 mcg/hr) 1 patches Route: Transdermal; Site: anterior chest bp wall; Intake: 14:23 IV: 500ml; Total: 500ml. bp 14:23 IV: 375ml; Total: 875ml. bp Outcome: 13:50 Discharge ordered by . thanh 14:20 Patient left the ED. iw 14:22 Discharged to home via wheelchair, with family. bp 14:22 Condition: stable 14:22 Discharge instructions given to patient, family, Instructed on discharge instructions, follow up and referral plans. medication usage, Demonstrated understanding of instructions, follow-up care, medications, Prescriptions given X 3. Signatures: Dispatcher [employer] [facility] Irwin Starks MD MD cha Williams, Irene RN ANUPAMA Cheyanne Chopra 2 Forrest Serna RN RN bp Wood, Whitney, RN RN ww Corrections: (The following items were deleted from the chart) 10: 09:53 Pulse 112bpm; Resp 20bpm; Pulse Ox 95%; Temp 98.0F; 81.65 kg; Height 5 ft. 7 in.; bp BMI: 28.1; iw 10: 09:55 BP 149 / 93; iw bp
--- NOTE | 2021-03-18 13:51 | EDPHYS ---
Physician Documentation [facility] Name: Aida Milner Age: 80 yrs Sex: Female : 1940 Arrival Date: 03/18/2021 Time: 09:51 Bed 20 Private MD: Trey Moreno C ED Physician Irwin Starks HPI: 03/18 10:23 This 80 yrs old Female presents to ER via Wheelchair with complaints of Low thanh Back Pain. 10:23 The patient presents with pain that is acute, with no known mechanism of injury. The thanh symptoms are located in the low back, lumbar area and left low back. 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 - Social history:: Smoking status: Patient denies any tobacco usage or history of. ROS: 10:35 Constitutional: Negative for fever, chills, and weight loss, Eyes: Negative for injury, thanh pain, redness, and discharge, ENT: Negative for injury, pain, and discharge, Neck: Negative for injury, pain, and swelling, Cardiovascular: Negative for chest pain, palpitations, and edema, Respiratory: Negative for shortness of breath, cough, wheezing, and pleuritic chest pain, Abdomen/GI: Negative for abdominal pain, nausea, vomiting, diarrhea, and constipation, : Negative for injury, bleeding, discharge, and swelling, Skin: Negative for injury, rash, and discoloration, Neuro: Negative for headache, weakness, numbness, tingling, and seizure, Psych: Negative for depression, anxiety, suicide ideation, homicidal ideation, and hallucinations, Allergy/Immunology: Negative for hives, rash, and allergies, Endocrine: Negative for neck swelling, polydipsia, polyuria, polyphagia, and marked weight changes. 10:35 Constitutional: Positive for body aches. 10:35 Back: Positive for pain at rest, pain with movement, radiated pain, of the left low back. 10:35 Back: Positive for 10:35 Neuro: Positive for weakness. Exam: 10:35 Constitutional: This is a well developed, well nourished patient who is awake, alert, thanh and in no acute distress. Head/Face: Normocephalic, atraumatic. Eyes: Pupils equal round and reactive to light, extra-ocular motions intact. Lids and lashes normal. Conjunctiva and sclera are non-icteric and not injected. Cornea within normal limits. Periorbital areas with no swelling, redness, or edema. ENT: Nares patent. No nasal discharge, no septal abnormalities noted. Tympanic membranes are normal and external auditory canals are clear. Oropharynx with no redness, swelling, or masses, exudates, or evidence of obstruction, uvula midline. Mucous membranes moist. Neck: Trachea midline, no thyromegaly or masses palpated, and no cervical lymphadenopathy. Supple, full range of motion without nuchal rigidity, or vertebral point tenderness. No Meningismus. Chest/axilla: Normal chest wall appearance and motion. Nontender with no deformity. No lesions are appreciated. Cardiovascular: Regular rate and rhythm with a normal S1 and S2. No gallops, murmurs, or rubs. Normal PMI, no JVD. No pulse deficits. Respiratory: Lungs have equal breath sounds bilaterally, clear to auscultation and percussion. No rales, rhonchi or wheezes noted. No increased work of breathing, no retractions or nasal flaring. Abdomen/GI: Soft, non-tender, with normal bowel sounds. No distension or tympany. No guarding or rebound. No evidence of tenderness throughout. Female : Normal external genitalia. Skin: Warm, dry with normal turgor. Normal color with no rashes, no lesions, and no evidence of cellulitis. Neuro: Awake and alert, GCS 15, oriented to person, place, time, and situation. Cranial nerves II-XII grossly intact. Motor strength 5/5 in all extremities. Sensory grossly intact. Cerebellar exam normal. Normal gait. Psych: Awake, alert, with orientation to person, place and time. Behavior, mood, and affect are within normal limits. 10:35 Back: pain, that is moderate, ROM is painful, decreased, normal spinal alignment noted, CVA tenderness, is absent, muscle spasm, is appreciated in the left low back, left mid back, right mid back and right low back. 13:44 ECG was reviewed by the Attending Physician. [facility] Vital Signs: 09:30 BP 130 / 90; Pulse 87; Resp 18; Pulse Ox 98% on R/A; ww 09:53 BP 149 / 93; Pulse 112; Resp 20; Temp 98.0; Pulse Ox 95% ; Weight 81.65 kg; Height 5 bp ft. 7 in. (170.18 cm); 10:01 BP 145 / 80; Pulse 66; Resp 18; Pulse Ox 99% on R/A; ww 11:43 BP 147 / 71; Pulse 63; Resp 16; Pulse Ox 98% on NC; ww 12:26 BP 159 / 71; Pulse 68; Resp 18; Pulse Ox 97% on R/A; ww 14:22 BP 145 / 72; Pulse 74; Resp 16; Pulse Ox 100% ; bp 09:53 Body Mass Index 28.19 (81.65 kg, 170.18 cm) bp MDM: 09:59 Patient medically screened. [facility] 10:45 Differential diagnosis: arthritis, strain, fracture, sciatica, contusion, Herniated thanh disc UTI. Data reviewed: vital signs, nurses notes, lab test result(s), EKG, radiologic studies, CT scan, plain films. 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 Test interpretation: by ED physician or midlevel provider: ECG, plain radiologic studies. Post IV fluid administration reassessment for Sepsis:. Counseling: I had a detailed discussion with the patient and/or guardian regarding: the historical points, exam findings, and any diagnostic results supporting the discharge/admit diagnosis, lab results, radiology results. 03/18 10:29 Order name: Basic Metabolic Panel; Complete Time: 13:32 [facility] 03/18 10:29 Order name: CBC with Diff; Complete Time: 13:32 [facility] 03/18 10:29 Order name: LFT's; Complete Time: 13:32 [facility] 03/18 10:29 Order name: Magnesium; Complete Time: 13:32 [facility] 03/18 10:29 Order name: NT PRO-BNP; Complete Time: 13:32 [facility] 03/18 10:29 Order name: PT-INR; Complete Time: 13:32 [facility] 03/18 10:29 Order name: Troponin (emerg Dept Use Only); Complete Time: 13:32 [facility] 03/18 10:29 Order name: XRAY Chest (1 view); Complete Time: 13:32 [facility] 03/18 10:29 Order name: Pelvis XRAY; Complete Time: 13:32 [facility] 03/18 10:29 Order name: Hip Left 2 View XRAY; Complete Time: 13:32 thanh 03/18 10:29 Order name: CT Lumbar Spine Wo Con; Complete Time: 13:32 thanh 03/18 10:30 Order name: Urine Culture [facility] 03/18 11:58 Order name: SARS-COV-2 RT PCR; Complete Time: 13:32 EDMS 03/18 10:29 Order name: EKG; Complete Time: 10:30 thanh 03/18 10:29 Order name: Cardiac monitoring; Complete Time: 10:40 thanh 03/18 10:29 Order name: EKG - Nurse/Tech; Complete Time: 10:40 thanh 03/18 10:29 Order name: IV Saline Lock; Complete Time: 10:40 thanh 03/18 10:29 Order name: Labs collected and sent; Complete Time: 10:40 [facility] 03/18 10:29 Order name: O2 Per Protocol; Complete Time: 10:40 thanh 03/18 10:29 Order name: O2 Sat Monitoring; Complete Time: 10:40 [facility] 03/18 10:29 Order name: CT Pelvis wo Cont: through hips; Complete Time: 13:32 thanh 03/18 10:30 Order name: Urine Dipstick-Ancillary (obtain specimen); Complete Time: 12:01 thanh EC:44 Rate is 88 beats/min. Rhythm is regular. QRS [place] is Normal. CO interval is prolonged thanh at 210 msec. QRS interval is normal. QT interval is normal. No Q waves. T waves are Normal. No ST changes noted. Clinical impression: 1st degree heart block and No evidence of ischemia. Interpreted by me. Reviewed by me. Administered Medications: 10:15 Drug: Dilaudid (HYDROmorphone) 1 mg Route: IVP; Site: right antecubital; bp 14:00 Follow up: Response: Pain is decreased bp 10:15 Drug: Zofran (Ondansetron) 4 mg Route: IVP; Site: right antecubital; bp 14:00 Follow up: Response: No adverse reaction bp 11:10 Drug: NS 0.9% 1000 ml Route: IV; Rate: 125 ml/hr; Site: right antecubital; bp 14:23 Follow up: IV Status: Completed infusion; IV Intake: 375ml bp 11:10 Drug: NS 0.9% 500 ml Route: IV; Rate: bolus; Site: right antecubital; bp 14:23 Follow up: IV Status: Completed infusion; IV Intake: 500ml bp 13:50 Drug: Ketorolac 30 mg Route: IVP; Site: right antecubital; bp 14:24 Follow up: Response: Pain is decreased bp 13:50 Drug: Decadron - Dexamethasone 10 mg Route: IVP; Site: right antecubital; bp 14:24 Follow up: Response: No adverse reaction bp 13:50 Drug: fentaNYL Patch (50 mcg/hr) 1 patches Route: Transdermal; Site: anterior chest bp wall; Disposition Summary: 03/18/21 13:50 Discharge Ordered Location: Home [facility] Problem: new thanh Symptoms: have improved thanh Condition: Stable thanh Diagnosis - Pelvic and perineal pain - metastatic pelic desease, breast cancer thanh Followup: [facility] - With: Trey Moreno MD - When: 2 - 3 days - Reason: Recheck today's complaints, Continuance of care, Re-evaluation by your physician Discharge Instructions: - Discharge Summary Sheet [facility] - Bone Metastasis [facility] - Metastatic Cancer thanh Forms: - Medication Reconciliation Form [facility] - Thank You Letter [facility] - Antibiotic Education [facility] - Prescription Opioid Use [facility] Prescriptions: - Zofran 4 mg Oral Tablet - take 1 tablet by ORAL route every 12 hours As needed; 20 tablet; Refills: 0, [facility] Product Selection Permitted - Tramadol 50 mg Oral Tablet - take 1 tablet by ORAL route every 6 hours as needed; 26 tablet; Refills: 0, [facility] Product Selection Permitted - Medrol (Bryan) 4 mg Oral Tablets, Dose Pack - take 1 tablet by ORAL route as directed - follow package instructions; 1 [facility] packet; Refills: 0, Product Selection Permitted Signatures: Dispatcher [employer] Irwin Lazar MD MD cha Williams, Irene, RN RN iw Peltier, Brian, RN RN bp Corrections: (The following items were deleted from the chart) 11:58 10:30 CORONAVIRUS+KWASI ordered. JAZLYN HOBSON
[2021-03-18] MEDS ORDERED: dexAMETHasone 10 MG/ML VIAL ONE (13:52)
[2021-03-18] MEDS ORDERED: KETOROLAC 30 MG/ML INJ ONE (13:52)
[2021-03-18] MEDS ORDERED: FENTANYL 25 MCG/PATCH TD ONE (13:52)
[2021-03-18 14:30] VITALS: TEMP 98
[2021-03-18 14:34] VITALS: BP 159/71; O2SAT 97
--- NOTE | 2021-03-19 11:18 | EKG ---
Test Date: 2021-03-18 Test Time: 13:26:54 Mechanical Systems Design Engineer: TRINIDAD Garnett MEASUREMENT RESULTS: Intervals: Rate: 88 AR: 210 QRSD: 88 QT: 380 QTc: 459 [place]: P: 55 AR: 210 QRS: 31 T: 33 INTERPRETIVE STATEMENTS: Sinus rhythm with 1st degree AV block Cannot rule out Anterior infarct, age undetermined Abnormal ECG Compared to ECG 12/01/2014 22:04:55 First degree AV block now present Myocardial infarct finding now present ST (T wave) deviation no longer present Electronically Signed On 03-19-21 11:14:20 FREIGHT BRAKEMAN by Beau Morgan
== END 2021-03-18 14:20 | disposition home or self-care (01) ==
LOC: ER 09:50
DX: R10.2 Pelvic and perineal pain (principal); C50.919 Malignant neoplasm of unspecified site of unspecified female breast; C79.89 Secondary malignant neoplasm of other specified sites
CPT/HCPCS: 96361; 93005; 87088; 85025; 87086; 80048; 36415; 83735; 85610; 80076; 84484; 83880; 72131; 72192; 71045; 72170; 73502; 96375; 96374; 99284; U0003; J1100; J1170 ×2; J7040; J7030; J2405